=== PATIENT | male | born 1950 | race Caucasian/White ===

== ENCOUNTER 2018-03-04 08:22 | Day surgery (SDC) | payer OTHER ==
[~2018-03-04 08:22] MED LIST: ALLEGRA ALLERG180 MG PO; AMLO5 PO; ATEN25 PO; CARV6.25 PO; ESCITALOPRAM OX10 MG PO; GABA800 PO; HYDMOR4 PO; LISI20 PO; MELO7.5; MELO7.5 PO; METF500 PO; Milk Of Ma400 MG/5 M PO; Norco 10-325 T1 EACH PO; ONDA4 PO; OXYC10TA19 PO; PANT40; Percocet 10-321 EACH PO; TAMS.4ER PO; TRAM50 PO; TRIHYD253A PO; VITAMIN B-121000 MCG; VITAMIN D31000 UNIT
--- NOTE | 2018-03-04 11:31 | NUR ---
"DAY SURGERY RN | ASSUMED CARE 400ML OF YELLOW URINE OUT INTO URINAL."
--- NOTE | 2018-03-04 12:08 | NUR ---
Discharge instructions reviewed with patient. Patient verbalizes understanding. Copy given to patient to take home. BANDIADE C/D/I T/O STAY IN STEP DOWN. PT DECLINED W/C, AMBULATED OUT OF DEPARTMENT.
== END 2018-03-05 22:51 | disposition home or self-care (01) ==
LOC: RAD 08:22
DX: G89.29 Other chronic pain (principal)
CPT/HCPCS: 62304; 72132; Q9966

== ENCOUNTER → 2020-06-28 | Outpatient (CLI) | payer OTHER | LOC: LAB 11:41 → LAB SHORT 11:41 | DX: D48.5 Neoplasm of uncertain behavior of skin (principal) | CPT/HCPCS: 88305 ==

== ENCOUNTER 2022-03-05 12:19 | Inpatient (IN) | payer OTHER ==
[~2022-03-05] VITALS: Ht 172.7 cm; Wt 114.5 kg
[~2022-03-05 12:19] MED LIST changes: +ATOR40TA; +CETI5; +MORP15ER; +OZEMPIC2 MG/0.75
[2022-03-05 12:44] LABS: BASOPHILS ABSOLUTE AUTO 0.06 K/mm3 (0.00-0.23); BASOPHILS PERCENT AUTO 1 % (0-2); EOSINOPHILS ABSOLUTE AUTO 0.14 K/mm3 (0.00-0.68); EOSINOPHILS PERCENT AUTO 1 % (0-6); Hematocrit 49.9 % (37.0-53.0); Hemoglobin 16.8 g/dL (13.5-17.5); IMMATURE GRAN ABSOLUTE AUTO 0.09 K/mm3 (0.00-0.10); IMMATURE GRAN PERCENT AUTO 1 % (0-1); LYMPHOCYTES ABSOLUTE AUTO 2.25 K/mm3 (0.84-5.20); LYMPHOCYTES PERCENT AUTO 21 % (21-46); MONOCYTES ABSOLUTE AUTO 1.29 K/mm3 (0.16-1.47); MONOCYTES PERCENT AUTO 12 % (4-13); Mean Corpuscular HGB 31.4 pg (26.0-34.0); Mean Corpuscular HGB Conc 33.7 g/dL (31.5-36.5); Mean Corpuscular Volume 93 fL (80-100); Mean Platelet Volume 9.9 fL (9.1-12.4); NEUTROPHILS ABSOLUTE AUTO 6.74 K/mm3 (1.96-9.15); NEUTROPHILS PERCENT AUTO 64 % (41-73); Platelet Count 168 K/mm3 (150-400); RDW Coefficient Variation 13.6 % (11.7-14.2); RDW Standard Deviation 46.4 fL (35.1-46.3); Red Blood Cell Count 5.35 M/mm3 (4.30-5.90); White Blood Cell Count 10.57 K/mm3 (4.00-11.30)
[2022-03-05 13:07] LABS: Albumin, Blood 3.3 g/dL (3.4-5.0); Albumin/Globulin Ratio 0.8 (0.8-1.8); Bilirubin, Total 0.6 mg/dL (0.1-1.0); Bun/Creatinine Ratio 8.8 (12.0-20.0); Calcium, Blood 9.3 mg/dL (8.5-10.1); Creatinine, Blood 1.02 mg/dL (0.60-1.20); Potassium, Blood 4.1 mmol/L (3.5-5.5); Total Protein, Blood 7.3 g/dL (6.4-8.2)
--- NOTE | 2022-03-05 15:26 | NUR ---
ARRIVAL PT ARRIVED FROM ER. NGT CONNECTED BACK TO LOW INT SUCTION. YELLOWISH, THICK OUTPUT IN TUBE. PT ENDORSES SIGNIFICANT PAIN TO ABDOMEN BUT STATES SLIGHTLY BETTER THAN EARLIER. HE REPORTS THE ONLY THING THAT HAS HELPED IN THE PAST IS DILAUDID. REMAINS ON 4L OXYGEN BUT STATES SHORTNESS OF BREATH IMPROVING. BOWEL SOUNDS HYPOACTIVE AND TYMPANIC. MODERATLY DISTENDED FIRM BELLY. DENIES FLATUS BUT REPORTS SMALL STOOL YESTERDAY. UMBILICAL HERNIA PRESENT, HE REPORTS PLANNED SURGERY WITH DR. MARTINEZ TO REMOVE ON 03/13/22. ABLE TO STAND AND TRANSFER TO BED, ATTEMPTED TO VOID BUT UNABLE AT THIS TIME.
--- NOTE | 2022-03-05 15:44 | NUR ---
BLADDER SCAN DONE ON PATIENT, 371. PT REPORTS SOME DIFFICULTY VOIDING. DR RUDOLPH AWARE, WILL PLACE PRUITT IF UNABLE TO VOID >450ML. ORDERS RECIEVED FOR CPAP PROTOCOL AND CONT BIOX.
--- NOTE | 2022-03-05 16:21 | NUR ---
PT REPORTS PAIN MUCH IMPROVED AT THIS TIME. ABLE TO SLEEP, DENIES NAUSEA. NGT REMAINS TO LOW INT SUCTION WITH THICK YELLOWISH OUTPUT. CONT BIOX CONNECTED PATIENT IS 98% ON ROOM AIR.
[2022-03-05] MEDS ORDERED: ATOR20 PO (17:00)
--- NOTE | 2022-03-05 17:44 | NUR ---
PT ABLE TO VOID AT THIS TIME. NGT IRRIGATED, THICK SECRETIONS HAVING TROUBLE PASSING THROUGH TUBE, ABLE TO CLEAR MUCOUS PLUG AND RETURN FROM NGT INCREASED. PT CONTINUES TO DENY PAIN OR NAUSEA.
[2022-03-06 03:52] LABS: BASOPHILS ABSOLUTE AUTO 0.04 K/mm3 (0.00-0.23); BASOPHILS PERCENT AUTO 0 % (0-2); EOSINOPHILS ABSOLUTE AUTO 0.14 K/mm3 (0.00-0.68); EOSINOPHILS PERCENT AUTO 1 % (0-6); Hematocrit 45.1 % (37.0-53.0); Hemoglobin 15.1 g/dL (13.5-17.5); IMMATURE GRAN ABSOLUTE AUTO 0.04 K/mm3 (0.00-0.10); IMMATURE GRAN PERCENT AUTO 0 % (0-1); LYMPHOCYTES ABSOLUTE AUTO 2.42 K/mm3 (0.84-5.20); LYMPHOCYTES PERCENT AUTO 24 % (21-46); MONOCYTES ABSOLUTE AUTO 1.68 K/mm3 (0.16-1.47); MONOCYTES PERCENT AUTO 17 % (4-13); Mean Corpuscular HGB 30.9 pg (26.0-34.0); Mean Corpuscular HGB Conc 33.5 g/dL (31.5-36.5); Mean Corpuscular Volume 92 fL (80-100); Mean Platelet Volume 10.1 fL (9.1-12.4); NEUTROPHILS ABSOLUTE AUTO 5.73 K/mm3 (1.96-9.15); NEUTROPHILS PERCENT AUTO 57 % (41-73); Platelet Count 158 K/mm3 (150-400); RDW Coefficient Variation 13.8 % (11.7-14.2); RDW Standard Deviation 46.8 fL (35.1-46.3); Red Blood Cell Count 4.88 M/mm3 (4.30-5.90); White Blood Cell Count 10.05 K/mm3 (4.00-11.30)
[2022-03-06 04:10] LABS: Albumin, Blood 2.9 g/dL (3.4-5.0); Albumin/Globulin Ratio 0.9 (0.8-1.8); Bilirubin, Total 0.5 mg/dL (0.1-1.0); Bun/Creatinine Ratio 9.4 (12.0-20.0); Creatinine, Blood 0.96 mg/dL (0.60-1.20); Globulin, Blood 3.3 g/dL (2.2-4.0); Total Protein, Blood 6.2 g/dL (6.4-8.2)
--- NOTE | 2022-03-06 06:33 | NUR ---
SHIFT SUMMARY AOX4. REPORTS 5-6/ MID BACK & GEN ABD DISCOMFORT, MEDICATED 4X c 2MG IV DILAUDID & PT ABLE TO REST. PT STATES HE HAS HIGH PAIN TOLERANCE R/T CHRONIC PAIN & PROBABLY HIS PAIN IS 8-9/10 FOR "NORMAL" PERSON. ABD MOD DISTENDED, MIN TENDER TO PALPATION, SOFT, TYMPANIC BT, REPORTS PASSING GAS, NO BM THIS SHIFT, STATES HE FEELS MORE BLOATED, DENIES N/V SINCE NG TUBE PLACED IN R NARES. HAD 950ML CLOUDY THICK GREEN DRAINAGE c MOD SEDIMENT & CHUNKS THAT REQUIRED NG TO BE MANUALLY IRRIGATED @TIMES TO RELEASE. HAS BEEN NPO FOR BOWEL REST, PT REQUESTING ICE CHIPS OR WATER THIS AM, WILL PASS INFO TO ONCOMING NURSE. VSS. CALL LIGHT IN REACH.
--- NOTE | 2022-03-06 14:14 | NUR ---
PT REPORTS PAIN IS "OK" FOR NOW, DENIES ANY NAUSEA, REPORTS PASSING FLATUS, AMBULATING DOWN THE [place].
--- NOTE | 2022-03-06 16:17 | NUR ---
CBG BEFORE LUNCH TIME WAS 89, DR. RUDOLPH NOTIFIED, ORDERED TO RE-CHECK THIS AFTERNOON, CURRENT CBG IS 78, DR. AMADO NOTIFIED, ORDERED TO CHECK CBG TID AND PRN, CALL FOR ABNORMAL RESULTS, PT DENIES ANY SYMPTOMS AT THIS TIME, CONT. TO MONITOR FOR ANY CHANGES.
--- NOTE | 2022-03-06 18:01 | NUR ---
SUMMARY C/O ABD PAIN T/O SHIFT, RATES PAIN AT 5/10, 3-4/10 AFTER MEDICATED WITH DILAUDID 1MG Q2HRS, DENIES ANY NAUSEA T/O SHIFT, AMBULATED IN ROOM AND IN HALLS, REPORTS PASSING FLATUS AND BM TODAY, PT STATES ABD DOESN'T FEEL ANY BETTER, CBG'S 83 BEFORE LUNCH TIME, 78 IN THE AFTERNOON AND 89 AT DINNERTIME, DR. AMADO AWARE, ORDERED TO MONITOR CBG'S TID AND PRN, NGT TO LIS, CONT. TO DRAIN GREEN SLIGHTLY THICK FLUID, NO ACUTE CHANGES THIS SHIFT.
[2022-03-07 04:39] LABS: BASOPHILS ABSOLUTE AUTO 0.02 K/mm3 (0.00-0.23); BASOPHILS PERCENT AUTO 0 % (0-2); EOSINOPHILS ABSOLUTE AUTO 0.07 K/mm3 (0.00-0.68); EOSINOPHILS PERCENT AUTO 1 % (0-6); Hematocrit 46.2 % (37.0-53.0); Hemoglobin 15.6 g/dL (13.5-17.5); IMMATURE GRAN ABSOLUTE AUTO 0.03 K/mm3 (0.00-0.10); IMMATURE GRAN PERCENT AUTO 0 % (0-1); LYMPHOCYTES ABSOLUTE AUTO 1.94 K/mm3 (0.84-5.20); LYMPHOCYTES PERCENT AUTO 21 % (21-46); MONOCYTES PERCENT AUTO 13 % (4-13); Mean Corpuscular HGB Conc 33.8 g/dL (31.5-36.5); Mean Corpuscular Volume 92 fL (80-100); Mean Platelet Volume 10.1 fL (9.1-12.4); NEUTROPHILS ABSOLUTE AUTO 6.15 K/mm3 (1.96-9.15); NEUTROPHILS PERCENT AUTO 65 % (41-73); Platelet Count 161 K/mm3 (150-400); RDW Coefficient Variation 13.3 % (11.7-14.2); RDW Standard Deviation 45.3 fL (35.1-46.3); Red Blood Cell Count 5.03 M/mm3 (4.30-5.90); White Blood Cell Count 9.41 K/mm3 (4.00-11.30)
[2022-03-07 05:24] LABS: Bun/Creatinine Ratio 8.7 (12.0-20.0); Calcium, Blood 8.7 mg/dL (8.5-10.1); Creatinine, Blood 0.92 mg/dL (0.60-1.20); Potassium, Blood 3.7 mmol/L (3.5-5.5)
--- NOTE | 2022-03-07 06:16 | NUR ---
SHIFT SUMMARY AOX4. VSS. REPORTS 5-6/10 PAIN IN NECK, MID BACK, LOW ABD, MEDICATED 3x c 2MG IV DILAUDID, PT ABLE TO REST WELL. NG TUBE IN R NARES SET TO LIS, TOTAL 400ML DRAINAGE OUT. AT BEGINNING OF SHIFT DRAINAGE WAS GREEN c SEDIMENT, NIGHT PROGRESSED DRAINAGE CLEARED, THEN BECAME DARK BROWN c SM AMOUNT SEDIMENT. PT PASSING GAS, NO BM THIS SHIFT, NPO, NO N/V, ACTIVE BT. PLAN TO HAVE SM BOWEL FOLLOW THOUGH TODAY. PT UP IND IN & USES CALL LIGHT APPROPRIATELY.
--- NOTE | 2022-03-07 08:24 | NUR ---
AMBULATED TO THE BATHROOM, REPORTS HAVING A SMALL FIRM BROWN BM THIS AM, REPORTS CONTINUES TO HAVE ABD PAIN AND SORENESS, DENIES ANY NAUSEA, CONT. TO MONITOR FOR ANY CHANGES.
--- NOTE | 2022-03-07 10:47 | NUR ---
PT C/O SORE THROAT, DR. AMADO NOTIFIED, ORDERED HURRICAINE SPRAY, PT NOW AMBULATING DOWN THE [place].
--- NOTE | 2022-03-07 14:32 | NUR ---
PT HAVING LOOSE STOOLS SINCE SBFT TODAY, PT REQUESTED TO BE OFF NGT SUCTION FOR A LITTLE WHILE SINCE HE IS FREQUENTLY GOING TO THE BATHROOM, PT INSTRUCTED TO CALL IF HAVING NAUSEA AND ABD DISCOMFORT.
--- NOTE | 2022-03-07 17:37 | NUR ---
SUMMARY NGT DC'D THIS EVENING ORDERED, PT TOLERATED WELL, DENIES ANY NAUSEA, SMALL SIP OF WATER GIVEN, PT HAD SBFT TODAY, HAD MULTIPLE LOOSE STOOLS AFTER PROCEDURE, AMBULATED DOWN THE HALLS, REPORTS CONTINUES TO HAVE ABD PAIN BUT BETTER THAN IT WAS, ABD SOFT MIN-MOD DISTENDED, NO ACUTE CHANGES THIS SHIFT.
[2022-03-08 04:19] LABS: BASOPHILS ABSOLUTE AUTO 0.03 K/mm3 (0.00-0.23); BASOPHILS PERCENT AUTO 1 % (0-2); EOSINOPHILS ABSOLUTE AUTO 0.04 K/mm3 (0.00-0.68); EOSINOPHILS PERCENT AUTO 1 % (0-6); Hematocrit 42.5 % (37.0-53.0); Hemoglobin 14.5 g/dL (13.5-17.5); IMMATURE GRAN ABSOLUTE AUTO 0.03 K/mm3 (0.00-0.10); IMMATURE GRAN PERCENT AUTO 1 % (0-1); LYMPHOCYTES PERCENT AUTO 28 % (21-46); MONOCYTES ABSOLUTE AUTO 1.24 K/mm3 (0.16-1.47); MONOCYTES PERCENT AUTO 19 % (4-13); Mean Corpuscular HGB 31.5 pg (26.0-34.0); Mean Corpuscular HGB Conc 34.1 g/dL (31.5-36.5); Mean Corpuscular Volume 92 fL (80-100); Mean Platelet Volume 9.9 fL (9.1-12.4); NEUTROPHILS ABSOLUTE AUTO 3.39 K/mm3 (1.96-9.15); NEUTROPHILS PERCENT AUTO 52 % (41-73); Platelet Count 150 K/mm3 (150-400); RDW Coefficient Variation 13.5 % (11.7-14.2); Red Blood Cell Count 4.61 M/mm3 (4.30-5.90); White Blood Cell Count 6.53 K/mm3 (4.00-11.30)
[2022-03-08 06:00] LABS: Calcium, Blood 8.7 mg/dL (8.5-10.1); Potassium, Blood 3.5 mmol/L (3.5-5.5)
--- NOTE | 2022-03-08 06:32 | NUR ---
PT VSS T/O NIGHT. ABD REMAINS MOD DISTENDED, PT REP ABD FEELS SOFTER W/MILD IMPROVEMENT IN DISTENTION. REP PAIN LESS SEVERE, STILL NEEDING FREQ PAIN MEDICATION FOR ABD AND BACK PAIN. PAIN MGD W/1 MG IV DILAUDID. PT REP MILTIPLE LIQ BM, IS VOIDING URINE W/O DIFFICULTY. PT ELKE FEW ICE CHIPS, DENIED N/V. PT AMB INDEP IN ROOM, ELKE WELL, AMB OUTSIDE OF ROOM ENC. IVF CONT PER ORDERS.
--- NOTE | 2022-03-08 13:50 | NUR ---
PATIENT D/C'D HOME WITH SPOUSE AT THIS TIME; BOTH STATE UNDERSTANDING OF MEDS, ACTIVITY, DIET, F/U APPT, ETC. NO C/O AT THIS TIME.
== END 2022-03-08 13:56 | disposition home or self-care (01) | DRG 390 ==
LOC: ER 12:19 → SURS 12:20
PROVIDERS: Emergency Medicine; Family Medicine; ADMIT Hospitalist
PROC: 0DH67UZ Insertion of Feeding Device into Stomach, Via Natural or Artificial Opening (ICD-10-PCS; 2022-03-05)
PROC: BD13ZZZ Fluoroscopy of Small Bowel (ICD-10-PCS; principal; 2022-03-07)
DX: K56.600 Partial intestinal obstruction, unspecified as to cause (principal); N40.0 Benign prostatic hyperplasia without lower urinary tract symptoms; K21.9 Gastro-esophageal reflux disease without esophagitis; I10 Essential (primary) hypertension; F17.210 Nicotine dependence, cigarettes, uncomplicated; E66.9 Obesity, unspecified; M54.9 Dorsalgia, unspecified; G89.29 Other chronic pain; K76.0 Fatty (change of) liver, not elsewhere classified; F11.10 Opioid abuse, uncomplicated; E11.9 Type 2 diabetes mellitus without complications; Z98.890 Other specified postprocedural states; Z88.8 Allergy status to other drugs, medicaments and biological substances; Z79.899 Other long term (current) drug therapy; Z79.02 Long term (current) use of antithrombotics/antiplatelets; Z79.84 Long term (current) use of oral hypoglycemic drugs; Z79.811 Long term (current) use of aromatase inhibitors; Z79.891 Long term (current) use of opiate analgesic; Z96.612 Presence of left artificial shoulder joint; Z96.611 Presence of right artificial shoulder joint; Z68.37 Body mass index [BMI] 37.0-37.9, adult
CPT/HCPCS: 36415; 71045; 74177; 74250; 80048; 80053; 82947; 83690; 85025; 93005; 93010; 94660; 94762; 96374-59; 96375; 96375-59; 96376; 96376-59; 99285-25; A9270; G0378; J1170; J1200; J2405; J7120; Q9967

== ENCOUNTER 2022-04-26 05:51 | Day surgery (SDC) | payer OTHER ==
[~2022-04-26] VITALS: Ht 172.7 cm; Wt 113.0 kg
[~2022-04-26 05:51] MED LIST changes: +ATOR20 PO; -CETI5; +CETI5 PO; +DOCU100 PO; -MORP15ER; +MORP15ER PO; +NICOTINE PATCH TOP; -OZEMPIC2 MG/0.75; +OZEMPIC2 MG/0.75 SC; -PANT40; +PANT40 PO
--- NOTE | 2022-04-26 06:58 | NUR ---
Ambulatory in Day Surgery History, Chart, Medications and Allergies reviewed before start of procedure. Pre-Op teaching done. Pt verbalizes understanding. Patient States Post-Procedure ride home has been arranged with Carla.
--- NOTE | 2022-04-26 08:16 | NUR ---
04/26/22 0816 ALBINA GABRIEL NOTED RAZOR CUTS ON PT ABD PRIOR TO PROCEDURE.
--- NOTE | 2022-04-26 10:40 | NUR ---
Patient up to Ambulate independently. Gait steady. Discharge instructions reviewed with patient. Patient verbalizes understanding. Copy given to patient to take home. Discharged via wheelchair to private car for ride home.
== END 2022-04-26 23:04 | disposition home or self-care (01) ==
LOC: ORSCMMR 05:51 → ORD 07:30 → ORSCMMR 23:04
PROVIDERS: Surgery
PROC: 0WQF0ZZ Repair Abdominal Wall, Open Approach (ICD-10-PCS; principal; 2022-04-26 07:30)
DX: K42.9 Umbilical hernia without obstruction or gangrene (principal); I10 Essential (primary) hypertension; J44.9 Chronic obstructive pulmonary disease, unspecified; F17.210 Nicotine dependence, cigarettes, uncomplicated; E11.9 Type 2 diabetes mellitus without complications; E66.9 Obesity, unspecified; Z68.38 Body mass index [BMI] 38.0-38.9, adult; Z79.84 Long term (current) use of oral hypoglycemic drugs; Z79.899 Other long term (current) drug therapy
CPT/HCPCS: 82947; A9270; J0330; J0690; J2250; J2370; J2704; J2710; J2795; J3010; J7120

== ENCOUNTER → 2024-04-08 | Outpatient (CLI) | payer OTHER | END | disposition home or self-care (01) | LOC: LAB SHORT 10:05 → LAB 10:05 → LAB FUT 04-07 15:45 | DX: D69.6 Thrombocytopenia, unspecified (principal); D80.8 Other immunodeficiencies with predominantly antibody defects | CPT/HCPCS: 87338 ==

== ENCOUNTER → 2024-09-04 | Outpatient (CLI) | payer OTHER ==
[2024-09-04 19:11] LABS: Campylobacter Sp Not Detected (NOT DETECT); E. Coli O157 Not Detected (NOT DETECT); Enteroaggregative E. coli-EAEC Not Detected (NOT DETECT); Enteropathogenic E. coli-EPEC Not Detected (NOT DETECT); Enterotoxigenic E. coli-ETEC Not Detected (NOT DETECT); Salmonella Sp Not Detected (NOT DETECT); Shiga Toxin-prod E. coli-STEC Not Detected (NOT DETECT); Shigella/Enteroin E. coli-EIEC Not Detected (NOT DETECT); Vibrio Sp Not Detected (NOT DETECT)
== END | disposition home or self-care (01) ==
LOC: LAB SHORT 15:51 → LAB 15:51
PROVIDERS: Internal Medicine
DX: R19.7 Diarrhea, unspecified (principal)
CPT/HCPCS: 87507

== ENCOUNTER 2024-12-29 09:03 | Day surgery (SDC) | payer OTHER ==
[~2024-12-29] VITALS: Ht 172.7 cm; Wt 115.7 kg
[~2024-12-29 09:03] MED LIST changes: +Lidocaine 1%-Epineph 1:100000 20 ML MDV ONE; +NS 500 ML IV ONE; +Sodium Bicarb 8.4% 1 MEQ/ML 50 ML Vial ONE
[2024-12-29] MEDS ORDERED: ATOR40TA PO (09:25)
[2024-12-29] MEDS ORDERED: CYCL10 PO (09:26)
[2024-12-29] MEDS ORDERED: NORTRIPTYLINE H5012 PO (09:28)
[2024-12-29] MEDS ORDERED: Dilaudid 2 mg Ta2 MG PO (09:29)
[2024-12-29] MEDS ORDERED: MOVANTIK25 M1 PO (09:30)
[2024-12-29] MEDS ORDERED: CeFAZolin Sodium 2,000 MG VIAL ONE (09:50)
[2024-12-29] MEDS ORDERED: OZEMPIC0.25 MG/02 (09:53)
[2024-12-29] MEDS ORDERED: FLUTICASONE PRO16 GM (09:54)
--- NOTE | 2024-12-29 10:03 | NUR ---
12/29/24 [id number] [email or web address] alvarado [id number]: TIMEOUT AND PRE-OP INJECTION BY DR BOYLE OF 5 CC OF MIX OF (9 CC LIDOCAINE 1% WITH EPI 1:100,000 WITH 1 CC SODIUM BICARB). PT TOLERATED WELL.
[2024-12-29] MEDS ORDERED: NS 500 ML IV ONE (10:07)
[2024-12-29] MEDS ORDERED: FentaNYL Citrate 50 MCG/ML 2 ML Injection ONE (10:24)
[2024-12-29 11:09] VITALS: BP 137/75
== END 2024-12-29 11:31 | disposition home or self-care (01) ==
LOC: ORSCSDS 09:03
PROVIDERS: Orthopaedic Surgery
PROC: 0LN80ZZ Release Left Hand Tendon, Open Approach (ICD-10-PCS; principal; 2024-12-29 10:30)
DX: M65.312 Trigger thumb, left thumb (principal); J44.89 Other specified chronic obstructive pulmonary disease; I10 Essential (primary) hypertension; E78.5 Hyperlipidemia, unspecified; G47.33 Obstructive sleep apnea (adult) (pediatric); E11.9 Type 2 diabetes mellitus without complications; I48.91 Unspecified atrial fibrillation; E66.01 Morbid (severe) obesity due to excess calories; Z68.38 Body mass index [BMI] 38.0-38.9, adult; Z79.84 Long term (current) use of oral hypoglycemic drugs; Z79.85 Long-term (current) use of injectable non-insulin antidiabetic drugs; Z79.899 Other long term (current) drug therapy; F17.210 Nicotine dependence, cigarettes, uncomplicated
CPT/HCPCS: 82947; J0690; J2704; J3010; J7040